=== PATIENT | male | born 1960 | race Caucasian/White ===

== ENCOUNTER 2021-04-08 06:21 | Observation (INO) | payer OTHER, BC ==
[~2021-04-08] VITALS: Ht 165 cm; Wt 108.9 kg
[2021-04-08 07:44] VITALS: BP 159/90
[2021-04-08 07:54] LABS: POTASSIUM 3.8 mmol/L (3.5-5.1)
[2021-04-08 08:00] LABS: ALBUMIN 3.7 g/dL (3.4-5.0); TOTAL BILIRUBIN 0.7 mg/dL (0.2-1.0); TOTAL PROTEIN 7.3 g/dL (6.4-8.2)
[2021-04-08] MEDS ORDERED: AMIODARONE HCL400 MG PO (08:05)
[2021-04-08] MEDS ORDERED: LIPITOR 20 MG T20 M1 PO (08:05)
[2021-04-08 08:06] LABS: INR 1.1; PROTIME 11.9 Seconds (9.3-11.4)
[2021-04-08] MEDS ORDERED: NEPHRO-VITE RX1 TA1 PO (08:07)
[2021-04-08] MEDS ORDERED: PHOSLO667 MG PO (08:08)
[2021-04-08] MEDS ORDERED: SENSIPAR60 MG PO (08:08)
[2021-04-08] MEDS ORDERED: LEVO-T100 MCG PO (08:09)
[2021-04-08] MEDS ORDERED: FUROSEMIDE 40 M40 MG PO (08:09)
[2021-04-08] MEDS ORDERED: OMEPRAZOLE 20 M20 M1 PO (08:10)
[2021-04-08] MEDS ORDERED: BYSTOLIC10 MG PO (08:10)
[2021-04-08] MEDS ORDERED: XARELTO10 MG PO (08:11)
[2021-04-08] MEDS ORDERED: REVATIO20 MG PO (08:11)
[2021-04-08 08:13] LABS: APTT 21.6 Seconds (24.5-32.8)
[2021-04-08 08:31] LABS: ABSOLUTE NEUTROPHILS 4.6 thou/uL (1.4-8.2); EOSINOPHILS 0.3 % (0.0-3.0); HEMATOCRIT 27.9 % (42.0-52.0); HEMOGLOBIN 9.2 gm/dL (14.0-18.0); MCH 34.2 pg (26.0-34.0); MCHC 33.1 g/dL (28.0-37.0); MCV 103.5 fL (80.0-100.0); PLATELET COUNT 124 thou/uL (150-400); POLYS 77.7 % (36.0-66.0); RDW 17.5 % (10.5-14.5); WBC 5.9 thou/uL (4.0-11.0)
--- NOTE | 2021-04-08 10:19 | TEE ---
[facility] [place] [address] TRANSESOPHAGEAL ECHOCARDIOGRAM Name: GEMINI KIRBY Room #: REG [facility]#: [id number] Admission: 04/08/21 Attend Phys: Silviano Pandey MD Discharge: Date of : 56 Report #: [id number] THIS REPORT FOR: cc: Saqib He MD, Prashanth S. MD Santiago, Patrick MD [facility] ~ APPROVED REPORT Study performed: 04/08/2021 08:08:32 EXAM: Comprehensive 2D, Doppler, and color-flow Echocardiogram Patient Location: Out-Patient Room #: EP Status: routine BSA: 2.17 HR: 104 bpm BP: 159/90 mmHg Rhythm: Atrial Fibrillation Other Information Study Quality: Good Indications Atrial Fibrillation Echo Enhancing Agent Indication: Rule out Shunt Agent(s) / Amount(s) Used: Agitated Saline 7 cc Procedure After obtaining informed consent, patient underwent transesophageal echo in the EP Lab. Type of Sedation : General Anesthesia Sedation was administered by Anesthesiologist. Sedation start time: 0850 Case end Time: 0900 Transesophageal probe was inserted and advanced into esophagus without difficulty by Bc Delgado MD. Echo enhancement indication: R/O Septal defect. Echo enhancement agent administered: Agitated Saline The SHERRILL was performed without complications. Throughout the procedure, the blood pressure, pulse oximetry, cardiac rhythm, and rate were monitored. [facility] [address] [place] [address] TRANSESOPHAGEAL ECHOCARDIOGRAM Name: GEMINI KIRBY Room #: REG [facility]#: [id number] Admission: 04/08/21 Attend Phys: Silviano Pandey Discharge: Date of : 56 Report #: [id number] The patient tolerated the procedure without adverse effects. Recovery from conscious sedation was uneventful and vital signs were stable. Left Ventricle The left ventricle is normal size. There is normal left ventricular wall thickness. The left ventricular systolic function is normal. The left ventricular ejection fraction is within the normal range. LVEF is 55-60%. Right Ventricle The right ventricle is normal size. The right ventricular systolic function is normal. Atria Left atrium is dilated. No thrombus is visualized in the left atrium or appendage. Interatrial septum is intact without evidence of ASD or PFO. Right atrium is dilated. Aortic Valve The aortic valve is normal in structure. No aortic regurgitation is present. There is no aortic valvular stenosis. Mitral Valve The mitral valve is normal in structure. Mild mitral regurgitation. No evidence of mitral valve stenosis. Tricuspid Valve The tricuspid valve is normal in structure. Mild tricuspid regurgitation. Pulmonic Valve The pulmonary valve is normal in structure. There is no pulmonic valvular regurgitation. Great Vessels The aortic root is normal in size. Pericardium There is no pericardial effusion. <Conclusion> Consent was obtained and procedure was discussed with the patient prior to the ablation Anesthesia performed by the anesthesiologist After proper sedation esophageal probe was advanced without [facility] [address] [address] TRANSESOPHAGEAL ECHOCARDIOGRAM Name: GEMINI KIRBY Room #: REG [facility]#: [id number] Admission: 04/08/21 Attend Phys: Silviano Pandey Discharge: Date of : 56 Report #: [id number] difficulty Normal left ventricle size/wall thickness ejection fraction of 60% Normal right ventricle size/function Mild biatrial enlargement left atrial appendage, moderate size, no obvious mass or clot detected No evidence of ASD/VSD by color flow/bubble study Mild tricuspid valve insufficiency No pericardial effusion Normal aortic root size <ELECTRONICALLY SIGNED> By: Bc Delgado MD, FACC 04/08/218 17 17 Bc Delgado MD, FACC /INF
--- NOTE | 2021-04-08 15:09 | NUR ---
REPORT GIVEN TO TYSON KURTZ, CCU, FOR ADMISSION [id number].
--- NOTE | 2021-04-08 15:39 | NUR ---
PT ORIENTED TO ROOM AND UNIT, BED LOW AND LOCKED, SIDE RAILS UP X3 CALL LIGHT IN REACH, TELE APPLIED, RIGHT GROIN CDI WITH NO HEMATOMA. WILL CONTINUE TO ASSESS.
[2021-04-08 16:00] VITALS: BP 118/68; BP 159/112; BP 172/116
--- NOTE | 2021-04-08 19:10 | NUR ---
ASSESS RIGHT GROIN WITH SADI KURTZ. REMAINS CDI WITH NO HEMATOMA. CPAP FROM HOME AT BEDSIDE RT WILL SET UP FOR PT.
[2021-04-08 19:55] VITALS: BP 139/77
[2021-04-09 04:45] VITALS: BP 146/65
[2021-04-09 11:11] VITALS: BP 146/65
--- NOTE | 2021-04-09 12:40 | NUR ---
TOOK OVER CARE FOR PATIENT AT 0700. PATIENT RECEIVING HEMODIALYSIS AT THIS TIME. 2 L TAKEN OFF FROM DIALYSIS. VITAL SIGNS STABLE. PATIENT DENIES ANY PAIN, DIZZINESS, HEADACHE, ETC. PATIENT RESTING COMFORTABLY IN BED. DENIES ANY NEEDS. DISCHARGE EDUCATION PROVIDED AND FOLLOW UP APPOINTMENT MADE WITH CARDIOLOGY. NO QUESTIONS OR CONCERNS AT THIS TIME.
[2021-04-09 13:00] VITALS: BP 124/73
== END 2021-04-09 13:47 | disposition home or self-care (01) ==
LOC: CATH 06:21 → 2N 15:41
PROVIDERS: ADMIT Internal Medicine Cardiovascular Disease; ATTEND Internal Medicine Cardiovascular Disease
DX: I48.0 Paroxysmal atrial fibrillation (principal); Z20.822 Contact with and (suspected) exposure to COVID-19; I12.0 Hypertensive chronic kidney disease with stage 5 chronic kidney disease or end stage renal disease; N18.6 End stage renal disease; E03.9 Hypothyroidism, unspecified; G47.33 Obstructive sleep apnea (adult) (pediatric); E66.9 Obesity, unspecified; Z68.41 Body mass index [BMI] 40.0-44.9, adult; Z99.2 Dependence on renal dialysis
CPT/HCPCS: 32100; 62110; 62900; 70005